=== PATIENT | male | born 1950 | race Hispanic/Latino ===

== ENCOUNTER 2019-07-01 10:00 | Inpatient (IN) | payer OTHER ==
[~2019-07-01] VITALS: Ht 157.5 cm; Wt 76.8 kg
[2019-07-01 14:37] LABS: BASOPHILS % (AUTO) 0.4 % (0.0-5.0); EOSINOPHILS % (AUTO) 3.3 % (0.0-8.0); HEMATOCRIT 38.4 % (42-54); LYMPHOCYTES % (AUTO) 24.7 % (21.0-51.0); MEAN CORPUSCULAR HGB CONC 33.8 g/dL (32.0-36.0); MEAN CORPUSCULAR VOLUME 82.8 fL (79-99); MONOCYTES % (AUTO) 7.8 % (3.0-13.0); NEUTROPHILS % (AUTO) 63.8 % (40.0-77.0); PLATELET COUNT (AUTO) 256 K/uL (130-400); RED BLOOD CELL COUNT(AUTO) 4.64 MIL/uL (4.50-6.20); RED CELL DISTRIBUTION WIDTH 14.8 % (11.0-15.5); WHITE BLOOD COUNT (AUTO) 6.2 K/uL (4.8-10.8)
[2019-07-01 14:46] LABS: HEMOGLOBIN A1C 6.3 % (4.0-6.0)
[2019-07-01 14:48] LABS: INR 0.92 (0.85-1.15); PARTIAL THROMBOPLASTIN TIME 24.8 SEC (26.3-35.5); PROTHROMBIN TIME 9.7 SEC (9.6-11.6)
[2019-07-01 14:50] LABS: ALBUMIN 3.3 g/dL (3.5-5.0); BILIRUBIN,TOTAL 0.2 mg/dL (0.2-1.0); CREATININE 1.1 mg/dL (0.5-1.5); POTASSIUM 4.3 mmol/L (3.5-5.1); TOTAL PROTEIN, SERUM 7.1 g/dL (6.0-8.3)
[2019-07-01] MEDS ORDERED: COMPOUND IV REFRIGERATED 1 EACH IVSOLN MISC PRN (15:15)
[2019-07-01 15:18] VITALS: BP 112/71
[2019-07-01] MEDS ORDERED: METF-444 PO (15:33)
[2019-07-01] MEDS ORDERED: DULO30CA52 PO (15:33)
[2019-07-01] MEDS ORDERED: LISI10TA7 PO (15:33)
[2019-07-01] MEDS ORDERED: ATOR10TA69 PO (15:33)
[2019-07-02] VITALS (16 sets, daily range): BP systolic 97–122; BP diastolic 60–76
--- NOTE | 2019-07-02 07:50 | NUR ---
POTENTIAL FOR INFECTION: SHAVED ENTIRE CHEST AREA AND LEFT SIDED BACK PER SERGE QUIÑONEZ, FOLLOWED BY WIPING WITH TYSON: 2% CHLORHEXIDINE GLUCONATE CLOTH PATIENTS PRE-OP SKIN PREP.
[2019-07-02] MEDS: CEFUROXIME SODIUM 750 MG/VIAL IVP SCH ×2 (08:30→10:21)
[2019-07-02] MEDS ORDERED: CEFUROXIME SODIUM 1.5 GM VIAL ONE (08:44)
[2019-07-02] MEDS ORDERED: SODIUM CHLORIDE 0.9% 1000ML 1,000 ML IV ONE (08:50)
[2019-07-02] MEDS ORDERED: LIDOCAINE PF 2% 5ML ABBOJECT ONE ×2 (09:05→09:07)
[2019-07-02] MEDS ORDERED: ONDANSETRON HCL 4 MG/2 ML VIAL ONE (09:05)
[2019-07-02] MEDS ORDERED: SUCCINYLCHOLINE 200MG/10ML SYR ONE ×2 (09:05→09:07)
[2019-07-02] MEDS ORDERED: DEXAMETHASONE SOD PHOSPHATE 10MG/ML 1ML VIAL ONE (09:05)
[2019-07-02] MEDS ORDERED: NEOSTIGMINE 5MG/5ML SYR IV ONE (09:06)
[2019-07-02] MEDS ORDERED: MIDAZOLAM HCL 1 MG/ML 2ML VIAL ONE (09:06)
[2019-07-02] MEDS ORDERED: GLYCOPYRROLATE 1 MG/5 ML SYRINGE ONE (09:06)
[2019-07-02] MEDS ORDERED: PROPOFOL 10 MG/ML 20ML VIAL IV ONE (09:06)
[2019-07-02] MEDS ORDERED: FENTANYL CITRATE PF 50 MCG/1 ML 2ML VIAL ONE ×2 (09:07→10:29)
[2019-07-02] MEDS ORDERED: ROCURONIUM 10MG/1ML SYR 10 MG/ML ML ONE (09:07)
[2019-07-02] MEDS ORDERED: SUB TO ALBUTEROL 2.5MG/3ML NEBULES PER P&T IH ONE (09:08)
[2019-07-02] MEDS ORDERED: TRAM50TA4 PO (09:26)
[2019-07-02] MEDS ORDERED: FURO20TA6 PO (09:26)
[2019-07-02] MEDS ORDERED: PHENYLEPHRINE HCL 10 MG/ML 1ML VIAL IV ONE ×2 (10:03)
[2019-07-02] MEDS ORDERED: BACITRACIN 50,000 UNIT VIAL ONE (10:07)
[2019-07-02] MEDS ORDERED: ROPIVACAINE 0.5% 5MG/ML 30ML IJ ONE (10:15)
[2019-07-02] MEDS ORDERED: Q-PUMP 1 EACH IRRIG SCH (10:30)
[2019-07-02] MEDS ORDERED: MEPERIDINE-PF 25 MG/ML SYG ONE ×3 (11:11→12:14)
--- NOTE | 2019-07-02 11:42 | NUR ---
PT WITH PAIN Q PUMP SET AT 10ML/HR. Addendum: 07/02/19 at 1236 by NICK CHERY RN RN Amended: Links added.
[2019-07-02] MEDS ORDERED: TRAMADOL HCL 50 MG TABLET PO PRN (11:45)
[2019-07-02] MEDS ORDERED: ACETAMINOPHEN 325 MG TAB PO PRN (11:45)
[2019-07-02] MEDS ORDERED: POLYETHYLENE GLYCOL 3350 17 GM POWD.PACK PO PRN (12:00)
[2019-07-02] MEDS ORDERED: POTASSIUM CHLORIDE 20 MEQ ERTAB PO PRN (12:15)
[2019-07-02] MEDS ORDERED: POTASSIUM CHLORIDE 20MEQ/100ML 100 ML IV PRN (12:15)
[2019-07-02] MEDS ORDERED: POTASSIUM CHLORIDE 10% ELIXIR 20 MEQ/15 ML UDCUP PO PRN (12:15)
[2019-07-02] MEDS ORDERED: LIDOCAINE HCL-MPF 1% 2ML VIAL IV PRN (12:15)
[2019-07-02] MEDS ORDERED: HYDRALAZINE HCL 20 MG/ML VIAL IV PRN (12:15)
[2019-07-02] MEDS ORDERED: GLUCAGON 1MG KIT 1 MG ML IM PRN (12:15)
[2019-07-02] MEDS ORDERED: DEXTROSE 50%-WATER 50 ML DISP.SYRIN IV PRN (12:15)
[2019-07-02] MEDS ORDERED: ROPIVACAINE 0.2% 2MG/ML 100ML VIAL IJ ONE (13:00)
[2019-07-02] MEDS: ONDANSETRON HCL 4 MG/2 ML VIAL IVP PRN ×2 (13:38→20:57)
[2019-07-02] MEDS: INSULIN HUMULIN R 100 UNIT/ML 3ML SQ SCH ×2 (16:04→21:00)
[2019-07-02] MEDS: KETOROLAC TROMETHAMINE 30MG/ML IV SCH ×2 (16:36→21:59)
[2019-07-02] MEDS: METFORMIN HCL 500 MG TABLET PO SCH (18:32)
--- NOTE | 2019-07-02 20:00 | NUR ---
VOIDED PATIENT HAVING TROUBLE VOIDING POST PERALES REMOVING. 1ST VOID POST PERALES REMOVAL 150 CC AT 1999. CLEAR, LIGHT [place]
[2019-07-02] MEDS: DOCUSATE SODIUM 100 MG CAP PO SCH (21:59)
[2019-07-02] MEDS: ATORVASTATIN CALCIUM 10 MG TABLET PO SCH (22:00)
[2019-07-03] VITALS (7 sets, daily range): BP systolic 97–106; BP diastolic 50–71
[2019-07-03] MEDS: KETOROLAC TROMETHAMINE 30MG/ML IV SCH ×4 (03:56→21:23)
[2019-07-03 05:05] LABS: HEMATOCRIT 32.9 % (42-54); MEAN CORPUSCULAR HEMOGLOBIN 27.8 pg (27.0-33.0); MEAN CORPUSCULAR VOLUME 81.9 fL (79-99); PLATELET COUNT (AUTO) 216 K/uL (130-400); RED BLOOD CELL COUNT(AUTO) 4.02 MIL/uL (4.50-6.20); WHITE BLOOD COUNT (AUTO) 8.4 K/uL (4.8-10.8)
[2019-07-03 05:13] LABS: CREATININE 1.1 mg/dL (0.5-1.5); POTASSIUM 4.3 mmol/L (3.5-5.1)
--- NOTE | 2019-07-03 05:19 | NUR ---
PATIENT HAD ONE EMESIS EPISODE. ADMIN ANTINAUSEA MEDICATION. NO NAUSEA REPORTED. PATIENT UP TO BSC, NO BM. DID VOID. L CHEST TUBE IN PLACE DRAINING SANGUINOUS FLUID. Q PUMP IN PLACE
[2019-07-03] MEDS: INSULIN HUMULIN R 100 UNIT/ML 3ML SQ SCH ×4 (05:58→21:00)
[2019-07-03] MEDS: DULOXETINE HCL 30 MG CAP PO SCH (08:47)
[2019-07-03] MEDS: METFORMIN HCL 500 MG TABLET PO SCH ×2 (08:47→17:25)
[2019-07-03] MEDS: DOCUSATE SODIUM 100 MG CAP PO SCH ×2 (08:47→20:30)
[2019-07-03] MEDS: FUROSEMIDE 20 MG TABLET PO SCH (08:48)
[2019-07-03] MEDS: LISINOPRIL 10 MG TABLET PO SCH (08:48)
[2019-07-03] MEDS: ENOXAPARIN SODIUM 30 MG/0.3 ML SQ SCH (08:49)
[2019-07-03] MEDS: ONDANSETRON HCL 4 MG/2 ML VIAL IVP PRN (11:41)
--- NOTE | 2019-07-03 17:10 | NUR ---
cm note met with patient and states resides athome with spouse, independent with adls and ambulation, only uses cane. states independent at home. can assist as needed. [place] [facility] [place] [facility] [facility]. states no dc needs. Addendum: 07/03/19 at 1711 by LUIS A GANNON CM Amended: Links added.
[2019-07-03] MEDS: METOCLOPRAMIDE 10 MG/2 ML VIAL IVP SCH ×2 (17:25→20:30)
[2019-07-03] MEDS: ATORVASTATIN CALCIUM 10 MG TABLET PO SCH (20:30)
[2019-07-04 04:27] VITALS: BP 107/66
[2019-07-04] MEDS: INSULIN HUMULIN R 100 UNIT/ML 3ML SQ SCH ×4 (05:42→21:00)
[2019-07-04] MEDS: METOCLOPRAMIDE 10 MG/2 ML VIAL IVP SCH ×4 (06:33→20:22)
[2019-07-04 07:00] VITALS: BP 122/72
[2019-07-04] MEDS: METFORMIN HCL 500 MG TABLET PO SCH ×2 (07:56→17:08)
[2019-07-04] MEDS: LISINOPRIL 10 MG TABLET PO SCH (09:35)
[2019-07-04] MEDS: DULOXETINE HCL 30 MG CAP PO SCH (09:35)
[2019-07-04] MEDS: DOCUSATE SODIUM 100 MG CAP PO SCH ×2 (09:35→20:22)
[2019-07-04] MEDS: ENOXAPARIN SODIUM 30 MG/0.3 ML SQ SCH (09:36)
[2019-07-04] MEDS: FUROSEMIDE 20 MG TABLET PO SCH (09:36)
[2019-07-04] MEDS: TRAMADOL HCL 50 MG TABLET PO PRN ×2 (09:42→17:13)
[2019-07-04 11:00] VITALS: BP 113/73
[2019-07-04 16:00] VITALS: BP 124/80
[2019-07-04] MEDS: ATORVASTATIN CALCIUM 10 MG TABLET PO SCH (20:22)
[2019-07-04 20:33] VITALS: BP 117/77
[2019-07-04 23:52] VITALS: BP 115/84
[2019-07-05 04:18] VITALS: BP 124/85
[2019-07-05] MEDS: INSULIN HUMULIN R 100 UNIT/ML 3ML SQ SCH ×3 (05:27→16:30)
[2019-07-05 07:00] VITALS: BP 135/85
[2019-07-05] MEDS: METOCLOPRAMIDE 10 MG/2 ML VIAL IVP SCH ×4 (07:00→20:40)
--- NOTE | 2019-07-05 07:30 | NUR ---
ASSESSMENT ENCOUNTERED PT SITTING UP IN CHAIR, A&OX3, CALM COOPERATIVE AND DOES NOT APPEAR TO BE IN ANY DISTRESS NOR ANY NEURO DEFICITS PRESENT. PT DENIES PAIN, SOB, NAUSEA. LEFT FLANK DRESSING DRY AND INTACT WITH NO OOZING OR DISCHARGE PRESENT. PT IS AMBULATORY, GAIT SLOW BUT STEADY WITH CANE AND STAND BY ASSIST. INCENTIVE SPIROMETRY UP TO 1000ML AVERAGE PER ATTEMPT. PT ENCOURAGED TO INCREASE FREQUENCY TO EVERY 30 MINUTES. CALL LIGHT WITHIN REACH, FAMILY AT BEDSIDE.
[2019-07-05] MEDS: DULOXETINE HCL 30 MG CAP PO SCH (09:00)
[2019-07-05] MEDS: DOCUSATE SODIUM 100 MG CAP PO SCH ×2 (09:00→20:40)
[2019-07-05 11:00] VITALS: BP 130/86
[2019-07-05] MEDS: LISINOPRIL 10 MG TABLET PO SCH (11:53)
[2019-07-05] MEDS: METFORMIN HCL 500 MG TABLET PO SCH ×2 (11:53→16:53)
[2019-07-05] MEDS: FUROSEMIDE 20 MG TABLET PO SCH (11:54)
[2019-07-05 15:00] VITALS: BP 117/75
[2019-07-05] MEDS: ENOXAPARIN SODIUM 30 MG/0.3 ML SQ SCH (16:59)
[2019-07-05 19:43] VITALS: BP 121/82
[2019-07-05] MEDS: ATORVASTATIN CALCIUM 10 MG TABLET PO SCH (20:40)
--- NOTE | 2019-07-05 20:50 | NUR ---
PT TAKEN DOWNSTAIRS VIA WC FOR DISCHARGE. NO DISTRESS NOTED.
--- NOTE | 2019-07-05 20:50 | NUR ---
DISCHARGE INSTRUCTIONS GIVEN, PIV REMOVED AND INTACT, DISCHARGED HOME TO FAMILY VEHICLE VIA WHEELCHAIR.
== END 2019-07-05 21:00 | disposition home or self-care (01) | DRG 908 ==
LOC: EDSTATUS 10:00 → DAHIP 07-02 07:11 → EDSEX 07-02 10:00 → 2AH 07-02 10:06
PROVIDERS: ADMIT Thoracic Surgery (Cardiothoracic Vascular Surgery); ATTEND Thoracic Surgery (Cardiothoracic Vascular Surgery)
PROC: 07L Lymphatic and Hemic Systems, Occlusion (ICD-10-PCS; principal; 2019-07-02 09:23)
DX: T81.83XA Persistent postprocedural fistula, initial encounter (principal); J94.0 Chylous effusion; E78.1 Pure hyperglyceridemia; Z79.899 Other long term (current) drug therapy; E11.9 Type 2 diabetes mellitus without complications; J44.9 Chronic obstructive pulmonary disease, unspecified; I10 Essential (primary) hypertension; Y92.89 Other specified places as the place of occurrence of the external cause
CPT/HCPCS: 36415; 71045; 71046; 80048; 80053; 82948; 83036; 85025; 85027; 85610; 85730; 86850; 86900; 86901; 93005; 97039; A4344; A7048; G0378; J0330; J0697; J1100; J1650; J1885; J2001; J2175; J2250; J2370; J2405; J2704; J2710; J2765; J2795; J3010; J3490; J7030

== ENCOUNTER → 2019-11-19 | Outpatient (CLI) | payer SELFPAY ==
[~2019-11-19] MED LIST: ATOR10TA69 PO; DULO30CA52 PO; FURO20TA6 PO; LISI10TA7 PO; METF-444 PO; TRAM50TA4 PO
== END | disposition home or self-care (01) ==
LOC: RAH 08:59
PROVIDERS: ATTEND Thoracic Surgery (Cardiothoracic Vascular Surgery)
DX: J98.11 Atelectasis (principal); M47.814 Spondylosis without myelopathy or radiculopathy, thoracic region; N20.0 Calculus of kidney; G58.8 Other specified mononeuropathies; Z90.2 Acquired absence of lung [part of]
CPT/HCPCS: 71250; 76000